=== PATIENT | male | born 1965 | race Caucasian/White ===

== ENCOUNTER → 2018-08-11 11:42 | Outpatient (CLI) | payer OTHER ==
--- NOTE | 2018-08-13 12:11 | ST ---
PATIENT:FOUZIA LUCAS MEDICAL RECORD: [id number] SEX: M LOCATION:[facility] ORDER #: ADMISSION DATE: 08/11/18 AGE OF PATIENT: 53 REFERRING PHYSICIAN: INTERPRETING PHYSICIAN: SOTERO DIANE MD DATE OF SERVICE: 08/11/2018 PROCEDURE: Nuclear stress test. INDICATION: Angina, hypertension, hyperlipidemia, and diabetes. He was exercised on standard Fareed protocol for 7 minutes 45 seconds, completing stage with reaching greater than 85% max target heart rate response with 33 mCi of sestamibi injected at peak stress, 11 mCi were used previously for rest images. FINDINGS: Gated SPECT reveals preserved ejection fraction at 70% with good wall motion and thickening and brightening throughout all segments. SPECT IMAGING: Cardiolite was used as myocardial fusion agent. There is homogeneous uptake throughout all segments at rest and stress with no evidence of inducible ischemia or previous infarction. OVERALL IMPRESSION: 1. This is a normal nuclear stress test with no evidence of inducible ischemia or previous infarction. 2. Gated SPECT reveals a preserved ejection fraction at 70%. In this patient with ongoing symptomatology, the current scan does not suggest the presence of hemodynamically significant coronary artery disease. Evaluate noncardiac etiology of chest pain. TRANSINT:[id number] Voice Confirmation ID: [id number] DOCUMENT ID: [id number] SOTERO DIANE MD at 1211 CC: [id number] DICTATION DATE: 08/11/18 1604 TOW MOTOR DRIVER: 08/12/18 0824 DEP CLI 08/11/[address] [id number]
== END | disposition home or self-care (01) ==
LOC: D.HCCARDIO 11:42
DX: I20.9 Angina pectoris, unspecified (principal)